=== PATIENT | male | born 1990 | race Caucasian/White ===

== ENCOUNTER 2016-05-29 | Emergency (ER) | payer SELFPAY ==
--- NOTE | 2016-05-29 11:41 | ED ---
ENT HPI - General Chief complaint: ENT Stated complaint: LEFT EAR PLUGGED Time Seen by Provider: 05/29/16 11:22 Source: patient Mode of arrival: ambulatory Limitations: no limitations - History of Present Illness Initial comments: 25-year-old male presenting for left ear pain and decreased hearing. States this began about 3-4 days ago and has been progressively worsening. He has tried some cgnf-lcv-[id number] ear drops which have not given him any relief. He denies any fevers or chills associated. He denies any right ear irritation. He denies any mastoid pain. Does state he has had some sinus congestion. He denies any chest pain or trouble swallowing. - Related Data Previous Rx's Medication Instructions Recorded Krnnmacr-Nebvfovkc-Jv Otic 4 drops LEFT EAR TID 5 Days 05/29/16 [Cortisporin Otic Soln] Allergies Allergy/AdvReac Type Severity Reaction Status Date / Time No Known Allergies Allergy Verified 05/29/16 11:50 Review of Systems ROS Statement: Those systems with pertinent positive or pertinent negative responses have been documented in the HPI. ROS Other: All systems not noted in ROS Statement are negative. Past Medical History Past Medical History: No Reported History History of Any Multi-Drug Resistant Organisms: None Reported Past Surgical History: No Surgical Hx Reported Past Psychological History: No Psychological Hx Reported Smoking Status: Current every day smoker Past Alcohol Use History: Occasional Past Drug Use History: None Reported General Exam - General Exam Comments Initial Comments: General: Awake and Alert. No acute distress. Does not appear acutely ill. Eyes: CRISTINE, EOM intact. No nystagmus. No scleral icterus. HENT: Atraumatic, normocephalic. Mucous membranes moist. Trachea midline. Right TM and ear canal normal. Left ear canal normal. Left TM appears very dry and erythematous. There is no bulging or retraction of the TM. There is no cerumen impaction bilaterally. There is no mastoid tenderness. Neck: The neck is supple, there is no tenderness or JVD. Cardiovascular: Regular rate and rhythm. No murmur, rub, or gallop is appreciated. Respiratory: Lungs are clear to auscultation bilaterally. No wheezes, rales, rhonchi. No respiratory distress. Gastrointestinal: Nondistended and nontender. Musculoskeletal: No tenderness. Normal ROM. No gross deformity. No strength deficits. Neurological: A&Ox3. CN II-XII grossly intact, There are no obvious motor or sensory deficits. Coordination appears grossly intact. Speech is normal. Skin: Skin is warm and dry and no rashes or lesions are noted. Psychiatric: Cooperative, appropriate mood & affect, normal judgment. Limitations: no limitations Course Vital Signs 05/29/16 11:12 Temperature 98.1 F Pulse Rate 61 Respiratory 18 Rate Blood Pressure 122/74 O2 Sat by Pulse 99 Oximetry Medical Decision Making - Medical Decision Making 25-year-old male with left tympanic membrane irritation. On exam left TM with significant dryness and erythema. Does not appear to be any bulging or retraction concerning for otitis media at this time. Discussed topical treatment with Cortisporin eardrops. Discussed axle-yjl-fcuzphq sinus medications as needed. Discussed follow-up with primary doctor. Patient is agreeable with plan and discharge home. Disposition Clinical Impression: Otalgia, left ear Disposition: HOME SELF-CARE Condition: Stable Instructions: Earache (ED) Additional Instructions: Please use ear drops in left ear three times per day for 5 days. You may take over the counter sinus congestion medications as needed. Prescriptions: Soxfswvf-Dypskdqzl-Br Otic [Cortisporin Otic Soln] 4 drops LEFT EAR TID 5 Days Referrals: None,Stated [Primary Care Provider] - 1-2 days Time of Disposition: 11:41
== END 2016-05-29 12:12 | disposition home or self-care (01) ==
CPT/HCPCS: 99282

== ENCOUNTER 2018-01-13 12:19 | Emergency (ER) | payer OTHER ==
[2018-01-13] MEDS ORDERED: LIDOCAINE 1%-EPI 1:100,000 30 ML VIAL SQ STA (13:14)
--- NOTE | 2018-01-13 13:16 | ED ---
General Adult HPI - General Chief complaint: Skin/Abscess/Foreign Body Stated complaint: Abscess/Cyst Source: patient Mode of arrival: ambulatory Limitations: no limitations - History of Present Illness Initial comments: Dictation was produced using Figure 1 dictation software. please excuse any grammatical, word or spelling errors. Chief Complaint: 27-year-old male withpast medical history presents with gluteal pain. History of Present Illness: Patient states he has never experienced pain like this in the past. He noticed a cyst to his superior gluteal cleft. Reports that he tried to drain it himself on the bathroom yesterday however was not able to do it. Denies any constitutional symptoms. The ROS documented in this emergency department record has been reviewed and confirmed by me. Those systems with pertinent positive or negative responses have been documented in the HPI. All other systems are other negative and/or noncontributory. - Related Data Previous Rx's Medication Instructions Recorded Cephalexin [Keflex] 500 mg PO Q6HR 5 Days #20 cap 01/13/18 Sulfamethox-Tmp 800-160Mg [Bactrim 1 tab PO Q12HR 5 Days #10 tab 01/13/18 DS 800-160 mg] Allergies Allergy/AdvReac Type Severity Reaction Status Date / Time No Known Allergies Allergy Verified 01/13/18 13:22 Review of Systems ROS Statement: Those systems with pertinent positive or pertinent negative responses have been documented in the HPI. ROS Other: All systems not noted in ROS Statement are negative. Past Medical History Past Medical History: No Reported History History of Any Multi-Drug Resistant Organisms: None Reported Past Surgical History: No Surgical Hx Reported Past Psychological History: No Psychological Hx Reported Smoking Status: Current every day smoker Past Alcohol Use History: Daily Past Drug Use History: Marijuana General Exam - General Exam Comments Initial Comments: PHYSICAL EXAM: General Impression: Alert and oriented x3, not in acute distress HEENT: Normocephalic atraumatic, extra-ocular movements intact, pupils equal and reactive to light bilaterally, mucous membranes moist. Cardiovascular: Heart regular rate and rhythm, S1&S2 audible, no murmurs, rubs or gallops Chest: Lungs clear to auscultation bilaterally, no rhonchi, no wheeze, no rales Abdomen: Bowel sounds present, abdomen soft, non-tender, non-distended, no organomegaly Musculoskeletal: Pulses present and equal in all extremities, no peripheral edema Motor: Power 5/5 bilaterally, no focal deficits noted Neurological: CN II-XII grossly intact, no focal motor or sensory deficits noted Skin: 2 x 2 centimeter fluctuant mass over the superior gluteal cleft. Psych: Normal affect and mood Limitations: no limitations Course Vital Signs 01/13/18 12:43 Temperature 98.3 F Pulse Rate 69 Respiratory 18 Rate Blood Pressure 151/92 O2 Sat by Pulse 99 Oximetry Procedures - Incision & Drainage Consent Obtained: verbal consent Time Out Performed?: Yes Site: back Anesthetic Used: lidocaine 1% I&D Cleaning Method: Chloroprep Sterile Field Used?: Yes Scalpel Used: #15 Needle Aspiration Performed?: Yes Irrigation Performed?: Yes I&D Drainage Obtained: Pus Packing: Iodoform Culture Obtained?: No Patient Tolerated Procedure: well Medical Decision Making - Medical Decision Making ED course: 19-year-old male clinical presentation consistent with pilonidal abscess. Vital signs upon arrival are within acceptable limits. Wound was I&D at bedside. Patient discharged with prescription for antibiotics. Patient discharged with instruction to follow up with primary care physician. Patient understandable agreeable to disposition. Disposition Clinical Impression: Pilonidal abscess Disposition: HOME SELF-CARE Condition: Good Instructions: Abscess Incision and Drainage (ED) Prescriptions: Cephalexin [Keflex] 500 mg PO Q6HR 5 Days #20 cap Sulfamethox-Tmp 800-160Mg [Bactrim DS 800-160 mg] 1 tab PO Q12HR 5 Days #10 tab Is patient prescribed a controlled substance at d/c from ED?: No Referrals: None,Stated [Primary Care Provider] - 1-2 days Viki Brewster MD [STAFF PHYSICIAN] - 1-2 days Time of Disposition: 13:49 Decision Time: 13:49
[2018-01-13 14:00] VITALS: BP 139/88; PULSE 85; RESP 16; TEMP 97.9
== END 2018-01-13 13:59 | disposition home or self-care (01) ==
LOC: EC 12:19
DX: L05.01 Pilonidal cyst with abscess (principal); F17.200 Nicotine dependence, unspecified, uncomplicated
CPT/HCPCS: 10060; 99283

== ENCOUNTER 2020-07-09 09:36 | Emergency (ER) | payer SELFPAY ==
[2020-07-09 09:44] VITALS: BP 151/96; PULSE 79; RESP 18; TEMP 98
--- NOTE | 2020-07-09 10:35 | ED ---
General Adult HPI - General Chief complaint: Dental/Oral Stated complaint: Tooth Infection Time Seen by Provider: 07/09/20 09:49 Source: patient, RN notes reviewed Mode of arrival: ambulatory Limitations: no limitations - History of Present Illness Initial comments: Patient is a 29-year-old male presented to the emergency room today with chief complaint of increased dental pain. Patient does admit that he has a fractured tooth that happen over year ago. He states the last today she's noticed increased swelling and tenderness locally. Denies any drainage or discharge. He denies any other complaints or any other symptoms. Patient denies any recent fever, chills, shortness of breath, chest pain, back pain, abdominal pain, nausea or vomiting, headaches or visual changes, or any other complaints. - Related Data Previous Rx's Medication Instructions Recorded Amoxicillin/Potassium Clav 1 each PO Q12HR #20 tab 07/09/20 [Augmentin 875-125 Tablet] Ibuprofen [Motrin] 600 mg PO Q6HR PRN #40 day 07/09/20 Allergies Allergy/AdvReac Type Severity Reaction Status Date / Time No Known Allergies Allergy Verified 07/09/20 10:29 Review of Systems ROS Statement: Those systems with pertinent positive or pertinent negative responses have been documented in the HPI. ROS Other: All systems not noted in ROS Statement are negative. Past Medical History Past Medical History: No Reported History History of Any Multi-Drug Resistant Organisms: None Reported Past Surgical History: No Surgical Hx Reported Past Psychological History: No Psychological Hx Reported Smoking Status: Current every day smoker Past Alcohol Use History: Occasional Past Drug Use History: Marijuana General Exam - General Exam Comments Initial Comments: General: The patient is awake and alert, in no distress, and does not appear acutely ill. Eye: extra-ocular movements are intact. There is normal conjunctiva bi laterally. No signs of icterus. Ears, nose, mouth and throat: There are moist mucous membranes and no oral lesions. Patient does have fractured tooth on the right upper molar. No abscess to drain. Neck: The neck is supple, there is no tenderness or JVD. Respiratory: respirations are non-labored, breath sounds are equal. Musculoskeletal: Normal ROM, no tenderness. Strength 5/5. Sensation intact. Pulses equal bilaterally 2+. Neurological: A&O x 3. CN II-XII intact, There are no obvious motor or sensory deficits. Coordination appears grossly intact. Speech is normal. Skin: Skin is warm and dry and no rashes or lesions are noted. Psychiatric: Cooperative, appropriate mood & affect, normal judgment. Limitations: no limitations Course Vital Signs 07/09/20 09:41 Temperature 98 F Pulse Rate 79 Respiratory 18 Rate Blood Pressure 151/96 O2 Sat by Pulse 98 Oximetry Medical Decision Making - Medical Decision Making Patient will be started on antibiotics of Augmentin also given anti- inflammatories for pain and advised to saltwater gargles and to follow with oral surgeon. Disposition Clinical Impression: Dental abscess Disposition: HOME SELF-CARE Instructions (If sedation given, give patient instructions): Dental Abscess (ED) Additional Instructions: Please follow-up with dentist and use antibiotic and pain medication as discussed. [facility] [address] [id number] [phone]) (existing clients only) For new clients: [phone] [facility] Pay $50 for x-rays and the rest discovered [phone] Prescriptions: Amoxicillin/Potassium Clav [Augmentin 875-125 Tablet] 1 each PO Q12HR #20 tab Ibuprofen [Motrin] 600 mg PO Q6HR PRN #40 day PRN Reason: Pain Is patient prescribed a controlled substance at d/c from ED?: No Referrals: None,Stated [Primary Care Provider] - 1-2 days Time of Disposition: 10:34
== END 2020-07-09 10:48 | disposition home or self-care (01) ==
LOC: EC 09:36
DX: K04.7 Periapical abscess without sinus (principal); F17.200 Nicotine dependence, unspecified, uncomplicated
CPT/HCPCS: 99282

== ENCOUNTER 2022-01-20 18:12 | Emergency (ER) | payer OTHER ==
[2022-01-20 19:55] VITALS: BP 122/78; PULSE 108; RESP 20; TEMP 101
[2022-01-20] MEDS ORDERED: ACETAMINOPHEN TAB 325 MG TAB PO STA (19:58)
[2022-01-20] MEDS ORDERED: IBUPROFEN 600 MG TAB PO STA (19:58)
--- NOTE | 2022-01-20 20:21 | ED ---
General Adult HPI - General Chief complaint: Fever Stated complaint: Fever,headache Time Seen by Provider: 01/20/22 19:58 Source: patient Mode of arrival: ambulatory Limitations: no limitations - History of Present Illness Initial comments: Patient is a 31-year-old male presenting with chief complaint of fever. Patient also admits to headache and fatigue. He denies any cough, chest pain, shortness of breath, nausea, vomiting, abdominal pain, sore throat, dysphasia, vision or hearing changes, neck pain or stiffness. - Related Data Home Medications Medication Instructions Recorded Confirmed No Known Home Medications 01/20/22 01/20/22 Allergies Allergy/AdvReac Type Severity Reaction Status Date / Time No Known Allergies Allergy Verified 01/20/22 20:24 Review of Systems ROS Statement: Those systems with pertinent positive or pertinent negative responses have been documented in the HPI. ROS Other: All systems not noted in ROS Statement are negative. Past Medical History Past Medical History: No Reported History History of Any Multi-Drug Resistant Organisms: None Reported Past Surgical History: No Surgical Hx Reported Past Psychological History: No Psychological Hx Reported Smoking Status: Current every day smoker Past Alcohol Use History: Occasional Past Drug Use History: Marijuana General Exam Limitations: no limitations General appearance: alert, in no apparent distress Head exam: Present: atraumatic, normocephalic, normal inspection Eye exam: Present: normal appearance, EOMI. Absent: scleral icterus, periorbital swelling Neck exam: Present: normal inspection. Absent: tenderness Respiratory exam: Present: normal lung sounds bilaterally. Absent: respiratory distress, wheezes, rales, rhonchi, stridor Cardiovascular Exam: Present: regular rate, normal rhythm, normal heart sounds. Absent: systolic murmur, diastolic murmur, rubs, gallop, clicks Neurological exam: Present: alert, oriented X3, CN II-XII intact Psychiatric exam: Present: normal affect, normal mood Skin exam: Present: warm, dry, intact, normal color. Absent: rash Course Vital Signs 01/20/22 19:53 Temperature 101 F H Pulse Rate 108 H Respiratory 20 Rate Blood Pressure 122/78 O2 Sat by Pulse 100 Oximetry Medical Decision Making - Medical Decision Making Patient is a 31-year-old male presenting with chief complaint of fever. On examination patient is febrile and mildly tachycardic. Patient is positive for Covid. Chest x-rays negative for any acute process. Patient is educated on supportive treatment and quarantine guidelines. Follow-up with PCP. Report back to ER with any new or worsening symptoms. Discussed return parameters and answered all questions. Patient conveyed verbal understanding and agreed to the plan. I discussed this case in detail with my attending Dr. Solomon. - Lab Data Lab Results 01/20/22 Range/Units 19:53 Coronavirus (PCR) Detected A (Not Detectd) Disposition Clinical Impression: COVID Disposition: HOME SELF-CARE Condition: Good Instructions (If sedation given, give patient instructions): COVID-19 (Coronavirus Disease 2019) (ED) Additional Instructions: Quarantine for 5 days starting today, this is then followed by 5 days of strict mask usage while out in public. You must be fever free for 24 hours in order to end quarantine. Alternate Motrin and Tylenol as needed for fever and pain control. Report back to ER with any new or worsening symptoms. Follow-up with your PCP. Is patient prescribed a controlled substance at d/c from ED?: No Referrals: None,Stated [Primary Care Provider] - 1-2 days Time of Disposition: 21:18
--- NOTE | 2022-01-20 20:55 | XR ---
EXAMINATION TYPE: XR chest 2V DATE OF EXAM: 01/20/2022 COMPARISON: 06/16/2012 HISTORY: Fever and cough TECHNIQUE: 2 views FINDINGS: Heart and mediastinum are normal. Lungs are clear. Diaphragm is normal. Bony thorax appears normal. IMPRESSION: Normal chest. No adverse change.
== END 2022-01-20 21:33 | disposition home or self-care (01) ==
LOC: EC 18:12
DX: U07.1 COVID-19 (principal); F17.200 Nicotine dependence, unspecified, uncomplicated
CPT/HCPCS: 71046; 87635; 99284